=== PATIENT | male | born 1995 | race American Indian/Alaskan Native ===

== ENCOUNTER 2017-07-03 22:11 | Emergency (ER) | payer OTHER ==
[~2017-07-03] VITALS: Ht 167.6 cm; Wt 54.4 kg
--- NOTE | 2017-07-03 22:14 | ER Report ---
History and Physical Time Seen By MD: 22:14 HPI/ROS CHIEF COMPLAINT: Left wrist pain HISTORY OF PRESENT ILLNESS: 22-year-old male presents ambulatory to the ER complaining of left wrist pain. He states he struck his wrist on the doorway. He is complaining of 5/10 pain. Patient shows decreased range of motion in this wrist. There is no bruising or angel. Patient denies any other injuries. Allergies: Coded Allergies: No Known Drug Allergies (Unverified , 07/03/17) Home Meds No Active Prescriptions or Reported Meds Reviewed Nurses Notes: Yes Old Medical Records Reviewed: Yes Constitutional Vital Sign - Last 24 Hours 07/03/17 22:16 Temp 98.7 Pulse 82 Resp 16 B/P (MAP) 154/104 Pulse Ox 98 O2 Delivery Room Air Physical Exam General appearance: Alert no distress. Respiratory: Chest is non tender, lungs are clear to auscultation. Cardiac: Regular rate and rhythm Extremities: Examination of the left hand reveals mild soft tissue swelling on the dorsal aspect of the wrist. There is decreased range of motion. There is no bruising or ecchymosis. All digits are neurovascularly intact. Patient instructed to weak grasp. DIFFERENTIAL DIAGNOSIS: After history and physical exam differential diagnosis was considered for sprain, strain, fracture, dislocation, contusion Medical Decision Making ED Course/Re-evaluation ED Course Patient was admitted to an examination room. H&P was done. The differential diagnoses was considered. On clinical examination. Patient has benign findings. Patient was offered an x-ray, but declined. Patient's medicated with ibuprofen and Tylenol. He's placed in a universal wrist splint. He is advised to follow-up for student [facility] if unimproved in 3-5 days. Decision to Disposition Date: Jul 03, 2017 Decision to Disposition Time: 22:33 Depart Departure Latest Vital Signs Vital Signs Date Time Temp Pulse Resp B/P (MAP) Pulse Ox O2 Delivery O2 Flow Rate FiO2 07/03/17 22:16 98.7 82 16 154/104 98 Room Air Impression: Primary Impression: Arm contusion Condition: Improved Disposition: HOME OR SELF-CARE Referrals: [facility] New Scripts No Active Prescriptions or Reported Meds Patient Instructions: Contusion in Adults (ED) Additional Instructions: Take ibuprofen 200 mg 2-3 tablets 3 times a day with food for pain relief Apply ice to your injury 30 minutes 3-4 times per day Follow-up with primary care or student health if unimproved in 3-5 days Problem Qualifiers Primary Impression: Arm contusion Encounter type: initial encounter Laterality: left Qualified Codes: S40.022A - Contusion of left upper arm, initial encounter HARRIET GOMEZ DO Jul 03, 2017 22:14
[2017-07-03 22:16] VITALS: BP 154/104
[2017-07-03] MEDS ORDERED: ACETAMINOPHEN 325 MG TAB PO ONE (22:35)
[2017-07-03] MEDS ORDERED: IBUPROFEN 600 MG TAB PO ONE (22:35)
== END 2017-07-03 22:42 | disposition home or self-care (01) ==
LOC: ER 22:14
DX: S40.022A Contusion of left upper arm, initial encounter (principal)
CPT/HCPCS: 99283; L3908

== ENCOUNTER 2017-08-07 08:14 | Emergency (ER) | payer OTHER ==
--- NOTE | 2017-08-07 08:38 | ER Report ---
History and Physical Time Seen By MD: 08:25 Hx. of Stated Complaint: PT HAS HAD SORE THROAT FOR 2 DAYS, NOT FEELING WELL SINCE LAST NIGHT HPI/ROS CHIEF COMPLAINT: Cold-like symptoms sore throat HISTORY OF PRESENT ILLNESS: 22-year-old male comes emergency Department today with 1 day of cough cold type symptoms sore throat nonproductive denies any fever chills or sweats had nausea without vomiting no chest pain abdominal pain or diarrhea no additional complaints noted REVIEW OF SYSTEMS: Respiratory: Cough nonproductive Cardiovascular: No chest pain, no palpitations. Gastrointestinal: No vomiting, no abdominal pain. Musculoskeletal: No back pain. Remainder of the 14 system rev: Yes Allergies: Coded Allergies: No Known Drug Allergies (Unverified , 08/07/17) Home Meds No Active Prescriptions or Reported Meds Reviewed Nurses Notes: Yes Old Medical Records Reviewed: Yes Hx Substance Use Disorder: No Hx Alcohol Use: Yes (OCCASSIONAL) Constitutional Vital Sign - Last 24 Hours 08/07/17 08:22 Temp 97.4 Pulse 74 Resp 16 B/P (MAP) 133/82 Pulse Ox 97 O2 Delivery Room Air Physical Exam General Appearance: The patient is alert, has no immediate need for airway protection and no current signs of toxicity. [ ] Eyes: Pupils equal and round no injection. Respiratory: Chest is non tender, lungs are clear to auscultation. Cardiac: regular rate and rhythm [ ] Gastrointestinal: Abdomen is soft and non tender, no masses, bowel sounds normal. Musculoskeletal: Neck: Neck is supple and non tender. Extremities have full range of motion and are non tender. Skin: No rashes or lesions. [ ] DIFFERENTIAL DIAGNOSIS: After history and physical exam differential diagnosis was considered for cold, cold viral influenza viral upper respiratory infection strep Medical Decision Making Data Points Laboratory Hematology Test 08/07/17 08:29 Influenza Virus Type A (PCR) Negative (NEGATIVE) Influenza Virus Type B (PCR) Negative (NEGATIVE) Group A Streptococcus Screen Negative (NEGATIVE) Chemistry Test 08/07/17 08:29 Influenza Virus Type A (PCR) Negative (NEGATIVE) Influenza Virus Type B (PCR) Negative (NEGATIVE) Group A Streptococcus Screen Negative (NEGATIVE) ED Course/Re-evaluation ED Course ED clinical course 22-year-old male with cold flulike symptoms represent strep rapid influenza both negative patient be discharged diagnosis common cold Decision to Disposition Date: Aug 07, 2017 Decision to Disposition Time: 09:27 Depart Departure Latest Vital Signs Vital Signs Date Time Temp Pulse Resp B/P (MAP) Pulse Ox O2 Delivery O2 Flow Rate FiO2 08/07/17 08:22 97.4 74 16 133/82 97 Room Air Impression: Primary Impression: Common cold Condition: Improved Disposition: HOME OR SELF-CARE New Scripts No Active Prescriptions or Reported Meds Patient Instructions: Viral Pneumonia (GEN) BLANKA WILCOX MD Aug 07, 2017 08:38
[2017-08-07 09:30] VITALS: BP 130/86
== END 2017-08-07 09:31 | disposition home or self-care (01) ==
LOC: ER 08:29
DX: J00 Acute nasopharyngitis [common cold] (principal)
CPT/HCPCS: 87081; 87502; 87880; 99282

== ENCOUNTER → 2017-10-09 | Outpatient (REF) | payer OTHER ==
[2017-10-09 10:51] LABS: PLATELET COUNT, AUTOMATED 231 K/uL (150-450)
== END ==
PROVIDERS: ATTEND Nurse Practitioner Family
DX: R11.0 Nausea (principal); R12 Heartburn
CPT/HCPCS: 82040; 82150; 82247; 82310; 82374; 82435; 82565; 82947; 83690; 84075; 84132; 84155; 84295; 84450; 84460; 84520; 85025

== ENCOUNTER → 2017-10-10 | Outpatient (CLI) | payer OTHER ==
--- NOTE | 2017-10-10 14:29 | RADIOLOGY IMAGING REPORT ---
FACILITY: [facility] - [place] PATIENT NAME: Larry Fuentes : 1995 MR: [id number] V: [id number] EXAM DATE: ORDERING PHYSICIAN: PEDRO PERALTA TECHNOLOGIST: [place] [facility] [place] Fuentes : 1995 Visit/Account:[id number] Date of Sevice: 10/10/2017 Limited abdominal ultrasound of the right upper quadrant Indication: Right upper quadrant pain , Comparison: None available Findings Liver is normal in size, contour, and echotexture and measures 13.7 cm in length. There is normal hep atopedal portal venous flow. Gallbladder wall thickness is 2.7 mm with no evidence of shadowing stone or sludge within the gallbla dder lumen. Negative sonographic Sanders's sign reported by the technologist. Common duct measures 2.3 mm in maximum diameter with no evidence of shadowing stone. The head and proximal body of the pancreas is unremarkable. The distal body and tail is obscured by o verlying bowel gas. Abdominal aorta and IVC are patent and unremarkable. The right kidney is normal in size, contour, and echotexture and measures 10.3 cm in length. IMPRESSION: 1. Unremarkable appearance of the gallbladder and no acute abnormality on this ultrasound of the righ t upper quadrant region. Report Dictated By: Luis Cummings at 10/10/2017 2:24 PM Report E-Signed By: Luis Cummings at 10/10/2017 2:25 PM WSN:[id number]
== END ==
LOC: US 00:48
PROVIDERS: ATTEND Nurse Practitioner Family
DX: R10.9 Unspecified abdominal pain (principal)
CPT/HCPCS: 76705

== ENCOUNTER 2018-01-30 03:37 | Emergency (ER) | payer OTHER ==
--- NOTE | 2018-01-30 03:39 | ER Report ---
History and Physical Time Seen By MD: 03:39 HPI/ROS CHIEF COMPLAINT: Right upper molar dental pain HISTORY OF PRESENT ILLNESS: Patient is a 22-year-old male here with complaints of right upper molar dental pain which woke the patient from sleep. Patient reports having mild dental tenderness prior to going to sleep for which he took 2 Tylenol tablets prior to going to sleep. Patient denies fevers, chills. He does have a filling present in the tooth of maximal tenderness. 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 Patient is tolerating oral intake without issues. REVIEW OF SYSTEMS: Constitutional: No fever, no chills. Eyes: No discharge. ENT: No sore throat, + right upper molar pain Neurological: No headache. Allergies: Coded Allergies: No Known Drug Allergies (Unverified , 01/30/18) Home Meds Active Scripts Naproxen Sodium (ALEVE) 220 Mg Capsule, 440 MG PO TID, #20 CAPSULE Prov:JAMAL DICKINSON S DO 01/30/18 Penicillin V Potassium 500 Mg Tab (PENICILLIN V POTASSIUM 500 MG TAB) 500 Mg Tablet, 500 MG PO QID for 7 Days, #28 TAB Prov:DICKINSON,JAMAL S DO 01/30/18 Hx Substance Use Disorder: No Hx Alcohol Use: Yes (OCCASSIONAL) Constitutional Vital Sign - Last 24 Hours 01/30/18 03:40 Temp 98.1 Pulse 88 Resp 12 B/P (MAP) 133/87 Pulse Ox 95 O2 Delivery Room Air Physical Exam General Appearance: The patient is alert, has no immediate need for airway protection and no signs of toxicity. Uncomfortable Eyes: Pupils equal and round no pallor or injection. ENT, Mouth: Mucous membranes are moist, + tenderness of palpation of right upper molar Neurological: No focal deficits Skin: Warm and dry, no rashes. DIFFERENTIAL DIAGNOSIS: After history and physical exam differential diagnosis was considered for dental fracture, dental abscess Medical Decision Making ED Course/Re-evaluation ED Course Patient is a 22-year-old male here with complaints of right upper molar pain which started shortly prior to going to bed last night for which the patient took 2 Tylenol tablets. Patient woke from sleep with significant pain in the right upper molar where he has a filling in place. I performed a dental block with benzocaine 3 mL injection in the area of the superior alveolar nerve. Patient was also given an intramuscular injection of Toradol 30 mg. Patient was started on penicillin 500 mg 4 times a day for 7 days and advised to follow up with dentistry for further evaluation. Patient was stable at time of discharge. Procedure Patient was administered 3 mL of benzocaine with epinephrine into the area of the right superior alveolar nerve for dental block. Patient tolerated procedure well. Decision to Disposition Date: Jan 30, 2018 Decision to Disposition Time: 04:10 Depart Departure Latest Vital Signs Vital Signs Date Time Temp Pulse Resp B/P (MAP) Pulse Ox O2 Delivery O2 Flow Rate FiO2 01/30/18 03:40 98.1 88 12 133/87 95 Room Air Impression: Primary Impression: Pain, dental Condition: Improved Disposition: HOME OR SELF-CARE New Scripts Naproxen Sodium (ALEVE) 220 Mg Capsule 440 MG PO TID, #20 CAPSULE Prov: JAMAL DICKINSON DO 01/30/18 Penicillin V Potassium 500 Mg Tab (PENICILLIN V POTASSIUM 500 MG TAB) 500 Mg Tablet 500 MG PO QID for 7 Days, #28 TAB Prov: JAMAL DICKINSON DO 01/30/18 Patient Instructions: Penicillin V (By mouth), Toothache (ED) Additional Instructions: Please take one tablet of penicillin 4 times daily for 7 days. Please take naproxen 2 tablets twice daily as needed for pain control. Please send an appointment for dentistry for follow-up care. Please return promptly if you develop worsening pain, fevers, facial swelling, difficulty swallowing. JAMAL DICKINSON DO Jan 30, 2018 03:39
[2018-01-30 03:40] VITALS: BP 133/87
[2018-01-30] MEDS ORDERED: KETOROLAC 60 MG/2 ML VIAL IM ONE (03:55)
[2018-01-30] MEDS ORDERED: PENICILLIN VK 250 MG TAB PO SCH (03:55)
[2018-01-30] MEDS ORDERED: NAPR220C12 PO (03:59)
[2018-01-30] MEDS ORDERED: PENI-24 PO (03:59)
[2018-01-30] MEDS ORDERED: HYDR-385 PO (19:31)
== END 2018-01-30 04:13 | disposition home or self-care (01) ==
LOC: ER 03:39
DX: K08.89 Other specified disorders of teeth and supporting structures (principal)
CPT/HCPCS: 64400; 96372; 99283; J1885

== ENCOUNTER 2018-01-30 19:03 | Emergency (ER) | payer OTHER ==
[~2018-01-30 19:03] MED LIST: NAPR220C12 PO; PENI-24 PO
[2018-01-30 19:08] VITALS: BP 131/87
[2018-01-30] MEDS ORDERED: HYDR-385 PO (19:31)
--- NOTE | 2018-01-30 19:33 | ER Report ---
History and Physical Time Seen By MD: 19:20 Hx. of Stated Complaint: PT HAS TOOTHACHE, WAS RECENTLY SEEN IN THE ER, STATES HE IS NOT HAVING ANY RELIEF. PT STATES HE PREVIOUSLY LIED WHEN HE SAID HE HAS A DENTIST APPOINTMENT SCHEDULED FOR SATURDAY. HE SAID NO ONE IN [place] TAKES HIS INSURRANCE, [facility] HPI/ROS CHIEF COMPLAINT: Dental pain HISTORY OF PRESENT ILLNESS: 22-year-old male patient presents to emergency room with complaint of dental pain. Patient states that he's been having dental pain for the last couple days. He was seen early this morning, approximately 3:30, for same symptoms. He was started on amoxicillin. He states he is postictal 4 times a day, however he is only taking it twice a day. He has not tried to make an appointment with the dentis. He states that he did call his insurance company to see if there was a dentist close by that he could see. He states that he was directed to one over in [place]. Patient denies any fevers, chills. He states he is able to eat today. States the pain is fairly significant. He has taken Tylenol and naproxen without any improvement. Allergies: Coded Allergies: No Known Drug Allergies (Unverified , 01/30/18) Home Meds Active Scripts Hydrocodone Bit/Acetaminophen (HYDROCODON-ACETAMINOPHEN 5-325) 1 Each Tablet, 1 EACH PO Q4-6H PRN for PAIN, #4 TAB Prov:PEDRO PERALTA SKIVING MACHINE OPERATOR 01/30/18 Naproxen Sodium (ALEVE) 220 Mg Capsule, 440 MG PO TID, #20 CAPSULE Prov:JAMAL DICKINSON DO 01/30/18 Penicillin V Potassium 500 Mg Tab (PENICILLIN V POTASSIUM 500 MG TAB) 500 Mg Tablet, 500 MG PO QID for 7 Days, #28 TAB Prov:JAMAL DICKINSON DO 01/30/18 Past Medical/Surgical History Patient has a past medical history of occasional all use. Patient denies any surgical history. Reviewed Nurses Notes: Yes Hx Substance Use Disorder: No Hx Alcohol Use: Yes (OCCASSIONAL) Constitutional Vital Sign - Last 24 Hours 01/30/18 19:08 Temp 98.4 Pulse 64 Resp 16 B/P (MAP) 131/87 Pulse Ox 94 O2 Delivery Room Air Physical Exam General appearance: Alert no distress. Respiratory: Chest is non tender, lungs are clear to auscultation. Cardiac: Regular rate and rhythm. ENT: Patient does have a broken tooth on the upper side of the right side of the mouth. There is no obvious tenderness noted when eyes palpating with a tongue depressor. There is no erythema or noticeable abscess. Lymph: Patient has no cervical chain lymphadenopathy. DIFFERENTIAL DIAGNOSIS: After history and physical exam differential diagnosis was considered for dental infection, toothache. Medical Decision Making ED Course/Re-evaluation ED Course Patient was admitted in exam room, history of physical were obtained. Differential diagnoses were considered. On examination the patient had no obvious tenderness to the teeth along the upper right side. He had no enlarged lymph nodes. We will go ahead and treat him with a limited amount of pain medication. He is continue his antibiotics. He is to take the antibiotics as directed. Patient is to follow-up with dentist as soon as possible, he is to call tomorrow. I discussed this with patient who verbalized understanding and agreement with plan. Decision to Disposition Date: Jan 30, 2018 Decision to Disposition Time: 19:33 Depart Departure Latest Vital Signs Vital Signs Date Time Temp Pulse Resp B/P (MAP) Pulse Ox O2 Delivery O2 Flow Rate FiO2 01/30/18 19:08 98.4 64 16 131/87 94 Room Air Impression: Primary Impression: Pain, dental Condition: Condition Unchanged Disposition: HOME OR SELF-CARE New Scripts Hydrocodone Bit/Acetaminophen (HYDROCODON-ACETAMINOPHEN 5-325) 1 Each Tablet 1 EACH PO Q4-6H PRN for PAIN, #4 TAB Prov: PEDRO PERALTA 01/30/18 Patient Instructions: Toothache (ED) Additional Instructions: You may take Ibuoprofen in addition to the pain medication as needed for pain. Rinse mouth with warm salt water after every meal. Eat soft foods. Follow up with your dentist as soon as possible, call to make an appointment. Return to the ER if condition worsens. Take your antibiotics as directed. PEDRO PERALTA Jan 30, 2018 19:33
== END 2018-01-30 19:43 | disposition home or self-care (01) ==
LOC: ER 19:07
DX: K08.89 Other specified disorders of teeth and supporting structures (principal)
CPT/HCPCS: 99281